=== PATIENT | female | born 1995 | race Caucasian/White ===

== ENCOUNTER 2025-06-24 20:03 | Inpatient (IN) ==
[2025-06-24] MEDS: 0.9 % SODIUM CHLORIDE 1,000 ML IV ONE ×2 (20:44→20:45)
[2025-06-24] MEDS: ONDANSETRON 4 MG/2 ML VIAL IV ONE (20:51)
[2025-06-24] MEDS: cefTRIAXone 1 GM VIAL IV ONE (21:15)
[2025-06-24 21:42] LABS: ALT/SGPT 30 U/L (<40); AST/SGOT 37 U/L (<32); Albumin 3.6 gm/dL (3.2-5.2); Albumin/Globulin Ratio 1.4 (1.0-2.3); Alkaline Phosphatase 142 U/L (39-117); Anion Gap 15.0 (8.0-16.0); Bilirubin,Total 0.5 mg/dL (0.1-1.0); Blood Urea Nitrogen 28 mg/dL (6-20); Calcium 7.7 mg/dL (8.6-10.4); Carbon Dioxide 19 mmol/L (22-30); Chloride 104 mmol/L (96-108); Globulin 2.5 gm/dL (2.2-3.7); Glucose 108 mg/dL (70-105); Potassium 3.0 mmol/L (3.3-5.1); Sodium 138 mmol/L (133-145)
[2025-06-24] MEDS: LACTATED RINGERS 1,000 ML IV ONE (21:53)
[2025-06-24 22:17] LABS: Basophils # (Auto) 0.04 K/mcL (0.00-0.30); Basophils % (Auto) 0.3 % (0.0-2.0); Eosinophils # (Auto) 0.08 K/mcL (0.00-0.70); Eosinophils % (Auto) 0.5 % (0.0-7.0); Hematocrit 34.6 % (34.1-44.9); Hemoglobin 11.7 g/dL (11.2-15.7); Lymphocytes # (Auto) 0.53 K/mcL (1.50-4.80); Lymphocytes % (Auto) 3.4 % (15.5-49.0); Mean Corpuscular HGB Conc 33.8 g/dL (31.0-36.0); Monocytes # (Auto) 0.74 K/mcL (0.10-0.90); Monocytes % (Auto) 4.7 % (1.0-12.0); Neutrophils % (Auto) 87.7 % (38.0-78.0); Platelet Count 135 K/mcL (140-440); RBC 3.83 M/mcL (3.59-5.38); WBC 15.8 K/mcL (4.5-11.0)
[2025-06-24] MEDS: POTASSIUM CHLORIDE 20 MEQ TABLET PO ONE (22:33)
[2025-06-24] MEDS: NACL 0.9% W/KCL 20MEQ 1,000 ML IV SCH (22:51)
[2025-06-24 23:32] LABS: Bacteria,Urine Many /hpf (0); Bilirubin,Urine NEGATIVE (Negative); Color,Urine LT. YELLOW; Glucose,Urine (UA) NEGATIVE (Negative); Ketones,Urine TRACE mg/dL (Negative); Leukocyte Esterase,Urine SMALL /uL (Negative); Mucus,Urine Few /hpf; PH,Urine 6.0 (5.0-9.0); Protein,Urine 100 mg/dL (Negative); Specific Gravity,Urine 1.010 (1.000-1.035); Urobilinogen,Urine 0.2 mg/dL
[2025-06-25] MEDS: NOREPINEPHRINE 250 ML IV SCH
[2025-06-25] MEDS: 0.9 % SODIUM CHLORIDE 250 ML ONE (00:01)
[2025-06-25] MEDS: 0.9 % SODIUM CHLORIDE 250 ML IV SCH ×3 (00:01→04:20)
[2025-06-25] MEDS: NOREPINEPHRINE BITARTRATE 16 MG in 0.9 % SODIUM CHLORIDE 234 ML IV SCH (00:02)
[2025-06-25] MEDS: VANCOMYCIN 1,500 MG in 0.9 % SODIUM CHLORIDE 500 ML IV ONE (00:07)
[2025-06-25] MEDS ORDERED: PROPOFOL 200 MG/20 ML VIAL IV ONE (00:42)
[2025-06-25] MEDS ORDERED: fentaNYL 100 MCG/2 ML VIAL ONE (00:42)
[2025-06-25] MEDS ORDERED: DEXAMETHASONE 10 MG/ML VIAL ONE (00:44)
[2025-06-25] MEDS ORDERED: ONDANSETRON 4 MG/2 ML VIAL ONE (00:44)
[2025-06-25] MEDS ORDERED: FAMOTIDINE/PF 20 MG/2 ML VIAL IV ONE (00:44)
[2025-06-25] MEDS ORDERED: SUCCINYLCHOLINE 200 MG/10 ML VIAL IV ONE (00:44)
[2025-06-25] MEDS ORDERED: GLYCOPYRROLATE 0.2 MG/ML VIAL IV ONE (00:44)
[2025-06-25] MEDS ORDERED: MAGNESIUM SULFATE 2 GM/50 ML BAG IV ONE (00:44)
[2025-06-25] MEDS ORDERED: LIDOCAINE 2% PF 5 ML VIAL ONE (00:44)
[2025-06-25] MEDS ORDERED: PHENYLephrine 1 MG/10 ML SYRINGE (ANEST) ONE (01:05)
[2025-06-25] MEDS ORDERED: ROCURONIUM 10 MG/ML ML IV ONE (01:12)
[2025-06-25] MEDS ORDERED: SUGAMMADEX SODIUM 200 MG/2 ML VIAL IV ONE (01:12)
[2025-06-25] MEDS ORDERED: IPRATROPIUM/ALBUTEROL 3 ML AMPUL.NEB NEB PRN ×2 (01:19→02:33)
[2025-06-25] MEDS ORDERED: ONDANSETRON 4 MG/2 ML VIAL IV PRN (01:25)
[2025-06-25] MEDS ORDERED: LACTATED RINGERS 250 ML IV PRN (01:25)
[2025-06-25] MEDS ORDERED: BENZOCAINE/MENTHOL 1 LOZENGE PO PRN (01:25)
[2025-06-25] MEDS ORDERED: HYDROmorphone 0.5 MG/0.5 ML SYRINGE IV PRN (01:25)
[2025-06-25] MEDS ORDERED: NALOXONE HCL 0.4 MG/ML VIAL IV PRN (01:25)
[2025-06-25] MEDS ORDERED: fentaNYL 100 MCG/2 ML VIAL IV PRN (01:25)
[2025-06-25] MEDS ORDERED: MEPERIDINE 25 MG/ML VIAL IV PRN (01:25)
[2025-06-25] MEDS ORDERED: METHOCARBAMOL 1,000 MG/10 ML VIAL IV PRN (01:25)
[2025-06-25] MEDS: LIDOCAINE 2% URO-JET 10 ML JEL.PF.APP UR ONE (01:32)
[2025-06-25] MEDS: IOVERSOL 50 ML VIAL IJ ONE (01:32)
[2025-06-25] MEDS ORDERED: ACETAMINOPHEN 325 MG TABLET PO PRN (02:33)
[2025-06-25] MEDS ORDERED: PROMETHAZINE 25 MG/ML VIAL IV PRN (02:33)
[2025-06-25] MEDS: NACL 0.9% W/KCL 20MEQ 1,000 ML IV SCH (02:35)
[2025-06-25] MEDS: MAGNESIUM SULFATE 2 GM/50 ML BAG IV ONE ×2 (02:47→04:07)
[2025-06-25] MEDS: MAGNESIUM SULFATE 4 GM/100 ML BAG IV ONE (04:03)
[2025-06-25] MEDS: SCOPOLAMINE 1 PATCH PATCH TOPICAL ONE (04:05)
[2025-06-25] MEDS: ACETAMINOPHEN 1,000 MG/100 ML BAG IV ONE (04:06)
[2025-06-25] MEDS: LACTATED RINGERS 1,000 ML IV SCH (04:07)
[2025-06-25] MEDS: NOREPINEPHRINE BITARTRATE 8 MG in 0.9 % SODIUM CHLORIDE 242 ML IV SCH (04:08)
[2025-06-25 09:03] LABS: Basophils # (Auto) 0.01 K/mcL (0.00-0.30); Basophils % (Auto) 0 % (0.0-2.0); Eosinophils # (Auto) 0 K/mcL (0.00-0.70); Eosinophils % (Auto) 0 % (0.0-7.0); Hematocrit 31.8 % (34.1-44.9); Hemoglobin 10.5 g/dL (11.2-15.7); Lymphocytes # (Auto) 0.63 K/mcL (1.50-4.80); Lymphocytes % (Auto) 2.6 % (15.5-49.0); Mean Corpuscular HGB Conc 33.0 g/dL (31.0-36.0); Monocytes # (Auto) 0.57 K/mcL (0.10-0.90); Monocytes % (Auto) 2.3 % (1.0-12.0); Neutrophils % (Auto) 81.7 % (38.0-78.0); Platelet Count 108 K/mcL (140-440); RBC 3.39 M/mcL (3.59-5.38); WBC 24.3 K/mcL (4.5-11.0)
[2025-06-25 09:09] LABS: Phosphorous 3.1 mg/dL (2.5-4.5)
[2025-06-25] MEDS: 0.9 % SODIUM CHLORIDE 10 ML SYRINGE IV SCH (09:20)
[2025-06-25 09:21] LABS: ALT/SGPT 80 U/L (<40); AST/SGOT 84 U/L (<32); Albumin 3.1 gm/dL (3.2-5.2); Albumin/Globulin Ratio 1.5 (1.0-2.3); Alkaline Phosphatase 87 U/L (39-117); Anion Gap 10.0 (8.0-16.0); Bilirubin,Total 0.5 mg/dL (0.1-1.0); Blood Urea Nitrogen 24 mg/dL (6-20); Calcium 7.0 mg/dL (8.6-10.4); Carbon Dioxide 16 mmol/L (22-30); Chloride 115 mmol/L (96-108); Globulin 2.1 gm/dL (2.2-3.7); Glucose 152 mg/dL (70-105); Potassium 4.6 mmol/L (3.3-5.1); Sodium 141 mmol/L (133-145)
[2025-06-25] MEDS: DOCUSATE SODIUM 100 MG CAPSULE PO SCH (09:26)
[2025-06-25] MEDS: SENNOSIDES 1 TABLET PO SCH (09:26)
[2025-06-25] MEDS: PIPERACILLIN SODIUM/TAZOBACTAM 3.375 GM in DEXTROSE 5% IN WATER 50 ML IV ONE (10:42)
[2025-06-25] MEDS: PIPERACILLIN SODIUM/TAZOBACTAM 3.375 GM in DEXTROSE 5% IN WATER 100 ML IV SCH (14:32)
[2025-06-25] MEDS: MEROPENEM 0.5 GM in 0.9 % SODIUM CHLORIDE 50 ML IV SCH (16:49)
[2025-06-26 07:04] LABS: Phosphorous 2.3 mg/dL (2.5-4.5)
[2025-06-26 07:11] LABS: ALT/SGPT 64 U/L (<40); AST/SGOT 40 U/L (<32); Albumin 2.8 gm/dL (3.2-5.2); Albumin/Globulin Ratio 1.2 (1.0-2.3); Alkaline Phosphatase 109 U/L (39-117); Anion Gap 6.0 (8.0-16.0); Bilirubin,Total 0.3 mg/dL (0.1-1.0); Blood Urea Nitrogen 23 mg/dL (6-20); Calcium 8.0 mg/dL (8.6-10.4); Carbon Dioxide 17 mmol/L (22-30); Chloride 116 mmol/L (96-108); Globulin 2.4 gm/dL (2.2-3.7); Glucose 157 mg/dL (70-105); Potassium 4.8 mmol/L (3.3-5.1); Sodium 139 mmol/L (133-145)
[2025-06-26 07:26] LABS: Basophils # (Auto) 0 K/mcL (0.00-0.30); Basophils % (Auto) 0 % (0.0-2.0); Eosinophils # (Auto) 0 K/mcL (0.00-0.70); Eosinophils % (Auto) 0 % (0.0-7.0); Hematocrit 30.6 % (34.1-44.9); Hemoglobin 10.2 g/dL (11.2-15.7); Lymphocytes # (Auto) 1.20 K/mcL (1.50-4.80); Lymphocytes % (Auto) 4.2 % (15.5-49.0); Mean Corpuscular HGB Conc 33.3 g/dL (31.0-36.0); Monocytes # (Auto) 1.26 K/mcL (0.10-0.90); Monocytes % (Auto) 4.4 % (1.0-12.0); Neutrophils % (Auto) 90.7 % (38.0-78.0); Platelet Count 85 K/mcL (140-440); RBC 3.29 M/mcL (3.59-5.38); WBC 28.9 K/mcL (4.5-11.0)
[2025-06-26] MEDS: ONDANSETRON 4 MG/2 ML VIAL IV PRN (10:46)
[2025-06-26] MEDS: METOCLOPRAMIDE 10 MG TABLET PO SCH (11:42)
[2025-06-26] MEDS: LACTOBACILLUS 1 CAPSULE PO SCH (11:42)
[2025-06-26] MEDS: SODIUM PHOSPHATE 15 MMOL in DEXTROSE 5% IN WATER 250 ML IV SCH (13:18)
[2025-06-27 07:25] LABS: Phosphorous 2.5 mg/dL (2.5-4.5)
[2025-06-27 07:52] LABS: ALT/SGPT 60 U/L (<40); AST/SGOT 26 U/L (<32); Albumin 3.1 gm/dL (3.2-5.2); Albumin/Globulin Ratio 1.3 (1.0-2.3); Alkaline Phosphatase 138 U/L (39-117); Anion Gap 9.0 (8.0-16.0); Bilirubin,Total 0.5 mg/dL (0.1-1.0); Blood Urea Nitrogen 19 mg/dL (6-20); Calcium 8.1 mg/dL (8.6-10.4); Carbon Dioxide 21 mmol/L (22-30); Chloride 115 mmol/L (96-108); Globulin 2.4 gm/dL (2.2-3.7); Glucose 77 mg/dL (70-105); Potassium 3.5 mmol/L (3.3-5.1); Sodium 145 mmol/L (133-145)
[2025-06-27 07:56] LABS: Basophils # (Auto) 0.01 K/mcL (0.00-0.30); Basophils % (Auto) 0 % (0.0-2.0); Eosinophils # (Auto) 0.01 K/mcL (0.00-0.70); Eosinophils % (Auto) 0 % (0.0-7.0); Hematocrit 30.4 % (34.1-44.9); Hemoglobin 10.2 g/dL (11.2-15.7); Lymphocytes # (Auto) 1.22 K/mcL (1.50-4.80); Lymphocytes % (Auto) 5.5 % (15.5-49.0); Mean Corpuscular HGB Conc 33.6 g/dL (31.0-36.0); Monocytes # (Auto) 1.03 K/mcL (0.10-0.90); Monocytes % (Auto) 4.6 % (1.0-12.0); Neutrophils % (Auto) 89.6 % (38.0-78.0); Platelet Count 117 K/mcL (140-440); RBC 3.32 M/mcL (3.59-5.38); WBC 22.3 K/mcL (4.5-11.0)
[2025-06-27] MEDS ORDERED: LACTOBACILLUS 1 CAPSULE PO SCH (09:00)
[2025-06-27] MEDS: MAGNESIUM SULFATE 2 GM/50 ML BAG IV SCH (13:24)
[2025-06-28 06:23] LABS: Basophils # (Auto) 0.04 K/mcL (0.00-0.30); Basophils % (Auto) 0.2 % (0.0-2.0); Eosinophils # (Auto) 0.05 K/mcL (0.00-0.70); Eosinophils % (Auto) 0.3 % (0.0-7.0); Hematocrit 34.1 % (34.1-44.9); Hemoglobin 11.2 g/dL (11.2-15.7); Lymphocytes # (Auto) 1.61 K/mcL (1.50-4.80); Lymphocytes % (Auto) 9.6 % (15.5-49.0); Mean Corpuscular HGB Conc 32.8 g/dL (31.0-36.0); Monocytes # (Auto) 1.96 K/mcL (0.10-0.90); Monocytes % (Auto) 11.7 % (1.0-12.0); Neutrophils % (Auto) 74.0 % (38.0-78.0); Platelet Count 130 K/mcL (140-440); RBC 3.74 M/mcL (3.59-5.38); WBC 16.7 K/mcL (4.5-11.0)
[2025-06-28 06:33] LABS: Phosphorous 3.8 mg/dL (2.5-4.5)
[2025-06-28 06:41] LABS: ALT/SGPT 54 U/L (<40); AST/SGOT 25 U/L (<32); Albumin 3.2 gm/dL (3.2-5.2); Albumin/Globulin Ratio 1.1 (1.0-2.3); Alkaline Phosphatase 176 U/L (39-117); Anion Gap 10.0 (8.0-16.0); Bilirubin,Total 1.1 mg/dL (0.1-1.0); Blood Urea Nitrogen 9 mg/dL (6-20); Calcium 8.2 mg/dL (8.6-10.4); Carbon Dioxide 23 mmol/L (22-30); Chloride 107 mmol/L (96-108); Globulin 3.0 gm/dL (2.2-3.7); Glucose 81 mg/dL (70-105); Potassium 3.4 mmol/L (3.3-5.1); Sodium 140 mmol/L (133-145)
[2025-06-28] MEDS: POTASSIUM CHLORIDE 20 MEQ TABLET PO SCH (12:23)
[2025-06-29 06:33] LABS: ALT/SGPT 46 U/L (<40); AST/SGOT 16 U/L (<32); Albumin 3.4 gm/dL (3.2-5.2); Albumin/Globulin Ratio 1.1 (1.0-2.3); Alkaline Phosphatase 132 U/L (39-117); Anion Gap 10.0 (8.0-16.0); Bilirubin,Total 0.5 mg/dL (0.1-1.0); Blood Urea Nitrogen 9 mg/dL (6-20); Calcium 8.5 mg/dL (8.6-10.4); Carbon Dioxide 24 mmol/L (22-30); Chloride 106 mmol/L (96-108); Globulin 3.1 gm/dL (2.2-3.7); Glucose 92 mg/dL (70-105); Potassium 3.5 mmol/L (3.3-5.1); Sodium 140 mmol/L (133-145)
[2025-06-29 06:34] LABS: Phosphorous 4.6 mg/dL (2.5-4.5)
[2025-06-29 06:50] LABS: Basophils # (Auto) 0.04 K/mcL (0.00-0.30); Basophils % (Auto) 0.2 % (0.0-2.0); Eosinophils # (Auto) 0.11 K/mcL (0.00-0.70); Eosinophils % (Auto) 0.6 % (0.0-7.0); Hematocrit 34.7 % (34.1-44.9); Hemoglobin 11.6 g/dL (11.2-15.7); Lymphocytes # (Auto) 1.63 K/mcL (1.50-4.80); Lymphocytes % (Auto) 9.4 % (15.5-49.0); Mean Corpuscular HGB Conc 33.4 g/dL (31.0-36.0); Monocytes # (Auto) 2.06 K/mcL (0.10-0.90); Monocytes % (Auto) 11.9 % (1.0-12.0); Neutrophils % (Auto) 71.2 % (38.0-78.0); Platelet Count 182 K/mcL (140-440); RBC 3.86 M/mcL (3.59-5.38); WBC 17.3 K/mcL (4.5-11.0)
== END 2025-06-29 12:02 | disposition home or self-care (01) | DRG 853 ==
LOC: ED 20:03 → SSSU 06-25 00:41 → ICU 06-25 02:14 → MEDSUR 06-26 16:32
PROVIDERS: ADMIT Internal Medicine; ATTEND Internal Medicine